=== PATIENT | male | born 1970 | race Caucasian/White ===

== ENCOUNTER 2021-12-15 13:33 | Day surgery (SDC) | payer OTHER ==
[~2021-12-15] VITALS: Ht 182.9 cm; Wt 115.5 kg
[2021-12-15] MEDS ORDERED: Lisinopril2.5 MG (14:25)
[2021-12-15] MEDS ORDERED: EUTHYROX50 MCG (14:26)
[2021-12-15] MEDS ORDERED: ALLEGRA ALLERG180 MG (14:26)
[2021-12-15] MEDS ORDERED: ERGO400 (14:26)
[2021-12-15] MEDS ORDERED: ROPI.25 (14:26)
[2021-12-15] MEDS ORDERED: FLUT.05NI (14:27)
[2021-12-15] MEDS ORDERED: IPRATROPIUM BRO30 ML (14:27)
[2021-12-15] MEDS ORDERED: META800 (14:28)
[2021-12-15] MEDS ORDERED: IBUP600 (14:28)
[2021-12-15] MEDS ORDERED: METF500 (14:29)
--- NOTE | 2021-12-15 15:00 | NUR ---
12/15/21 Elizabeth Cunningham PT IS NOW ANESTHESIA CASE INSTEAD OF NURSE SEDATION DUE TO SOME MEDICAL COMPLICATIONS SUCH NECK INJURY, UNCONTROLLED BP, POSSIBLE SLEEP APNEA, CLASS 4 AIRWAY.
== END 2021-12-15 16:15 | disposition home or self-care (01) ==
LOC: ORSCSDS 13:33
PROVIDERS: Student in an Organized Health Care Education/Training Program
PROC: 0D757ZZ Dilation of Esophagus, Via Natural or Artificial Opening (ICD-10-PCS; principal; 2021-12-15 15:00)
PROC: 0DB58ZX Excision of Esophagus, Via Natural or Artificial Opening Endoscopic, Diagnostic (ICD-10-PCS; principal; 2021-12-15 15:00)
PROC: 0DB78ZX Excision of Stomach, Pylorus, Via Natural or Artificial Opening Endoscopic, Diagnostic (ICD-10-PCS; principal; 2021-12-15 15:00)
DX: R13.10 Dysphagia, unspecified (principal); K31.7 Polyp of stomach and duodenum; K21.9 Gastro-esophageal reflux disease without esophagitis; I10 Essential (primary) hypertension; E11.9 Type 2 diabetes mellitus without complications; J45.909 Unspecified asthma, uncomplicated; E66.9 Obesity, unspecified; Z68.34 Body mass index [BMI] 34.0-34.9, adult; Z79.899 Other long term (current) drug therapy; Z79.84 Long term (current) use of oral hypoglycemic drugs
CPT/HCPCS: 82947; 88305; 88342; J0330; J2405; J2704; J7120

== ENCOUNTER 2024-05-29 08:31 | Day surgery (SDC) | payer OTHER ==
[~2024-05-29] VITALS: Ht 182.9 cm; Wt 106.0 kg
[~2024-05-29 08:31] MED LIST: ALLEGRA ALLERG180 MG; ALLEGRA ALLERG180 MG PO; CHLO25B; ERGO400; EUTHYROX50 MCG; FLONASE ALLERG9.9 M2; FLUT.05NI; IBUP600; IPRATROPIUM BRO30 ML; LEVOTHYROXINE137 M11 PO; LISI20 PO; Lactated Ringer's 1,000 ML IV ONE; Lisinopril2.5 MG; META800 PO; METF500 PO; PANT40 PO; ROPI.25; ROPINIROLE HCL4 M1 PO
[2024-05-29] MEDS ORDERED: Lidocaine HCl 1% 30 ML SDV ONE (09:17)
[2024-05-29] MEDS ORDERED: propofoL 40 ML IV ONE (09:17)
[2024-05-29] MEDS ORDERED: JARDIANCE10 MG (09:19)
[2024-05-29] MEDS ORDERED: KRILL OIL 1,001 EACH (09:20)
[2024-05-29] MEDS ORDERED: LIVALO2 MG (09:20)
[2024-05-29] MEDS ORDERED: VITAMIN D5000 UNIT (09:20)
[2024-05-29] MEDS ORDERED: MELATONIN5 M1 (09:21)
[2024-05-29] MEDS ORDERED: Lactated Ringer's 1,000 ML IV ONE (09:55)
[2024-05-29] MEDS ORDERED: Lidocaine HCl 4% 5 ML SDA ONE (10:19)
--- NOTE | 2024-05-29 10:39 | NUR ---
05/29/24 1039 Adenike Francis 4% LIDO GIVEN TO DR. US FOR UPPER TO NUMB BACK OF HIS THROAT.
[2024-05-29 11:38] VITALS: BP 108/85
--- NOTE | 2024-05-29 11:46 | NUR ---
05/29/24 [facility]6 Xenia Mccormack 1124: PT REPORTED PAIN IMPROVED, 3/10 SORE THROAT NOW AFTER PO FLUIDS, PT STATED "IT IS MORE OF JUST A RAW FEELING". PT STATED HE "ALWAYS GETS AN IRRITATED THROAT WITH FLUIDS." EXPRESSES READINESS TO GO HOME.
--- NOTE | 2024-05-29 11:46 | NUR ---
05/29/24 1146 Adenike Francis LATE ENTRY PT. DENIES ANY PAIN.
== END 2024-05-29 11:40 | disposition home or self-care (01) ==
LOC: ORSCSDS 08:31
PROVIDERS: Internal Medicine Gastroenterology
PROC: 0D758ZZ Dilation of Esophagus, Via Natural or Artificial Opening Endoscopic (ICD-10-PCS; principal; 2024-05-29 10:15)
PROC: 0DB68ZX Excision of Stomach, Via Natural or Artificial Opening Endoscopic, Diagnostic (ICD-10-PCS; principal; 2024-05-29 10:15)
PROC: 0DB58ZX Excision of Esophagus, Via Natural or Artificial Opening Endoscopic, Diagnostic (ICD-10-PCS; principal; 2024-05-29 10:15)
DX: R13.10 Dysphagia, unspecified (principal); K31.7 Polyp of stomach and duodenum; K21.9 Gastro-esophageal reflux disease without esophagitis; E11.9 Type 2 diabetes mellitus without complications; J45.909 Unspecified asthma, uncomplicated; I10 Essential (primary) hypertension; E78.5 Hyperlipidemia, unspecified; Z79.84 Long term (current) use of oral hypoglycemic drugs; Z79.899 Other long term (current) drug therapy; Z87.891 Personal history of nicotine dependence
CPT/HCPCS: 82947; 88305; 88341; 88342; J2003; J2704; J7120